=== PATIENT | female | born 1985 | race Asian ===

== ENCOUNTER 2019-09-26 09:22 | Emergency (ER) | payer MEDICAID ==
[~2019-09-26] VITALS: Ht 157.5 cm; Wt 72.7 kg
[2019-09-26 09:45] VITALS: BP 120/71
[2019-09-26] MEDS ORDERED: DEXAMETHASONE SOD PHOS 20 MG/5 ML VIAL. PO ONE (10:30)
[2019-09-26] MEDS ORDERED: diphenhydrAMINE HCL 25 MG CAPSULE PO ONE (10:30)
--- NOTE | 2019-09-26 10:45 | PHYS DOC ---
Past Medical History Past Medical History: No Pertinent History Past Surgical History: No Surgical History Smoking Status: Never Smoker Alcohol Use: None General Adult EDM: Chief Complaint: SKIN RASH/ABSCESS HPI: HPI: Patient is a 33 year old female, accompanied by a friend, who presents to the emergency department with complaints of a itchy rash all over that began yesterday. The patient is non-Belizean speaking and her friend is translating for her. The patient denies any new medications, detergents, foods, perfumes, or environmental exposures. She denies any shortness of breath, wheezing, fever, sore throat, cough, abdominal pain, nausea, vomiting, or diarrhea. She reports her last menstrual cycle was on September 192011, she denies any medical or surgical history. She currently denies any pain. Review of Systems: Review of Systems: Constitutional: Denies fever or chills. [] HENT: Denies nasal congestion or sore throat. [] Respiratory: Denies cough or shortness of breath. [] Cardiovascular: Denies chest pain GI: Denies abdominal pain, nausea, vomiting, or diarrhea. [] Integument: See HPI Neurologic: Denies headache Psychiatric: Denies depression or anxiety. [] Heart Score: Risk Factors: Risk Factors: DM, Current or recent (<one month) smoker, HTN, HLP, family history of CAD, obesity. Risk Scores: Score 0 - 3: 2.5% MACE over next 6 weeks - Discharge Home Score 4 - 6: 20.3% MACE over next 6 weeks - Admit for Clinical Observation Score 7 - 10: 72.7% MACE over next 6 weeks - Early Invasive Strategies Current Medications: Current Medications Medications (Trade) Dose Ordered Sig/Harriett Start Time Stop Time Status Last Admin Dose Admin Dexamethasone Sodium Phosphate (Decadron) 10 mg 1X ONCE 09/26/19 10:30 09/26/19 10:33 DC Diphenhydramine HCl (Benadryl) 50 mg 1X ONCE 09/26/19 10:30 09/26/19 10:33 DC Allergies: Allergies: Allergies Coded Allergies Type Severity Reaction Last Updated Verified No Known Drug Allergies 09/26/19 No Physical Exam: PE: Constitutional: Well developed, well nourished, no acute distress, non-toxic appearance. [] HENT: Normocephalic, atraumatic, bilateral external ears normal, nose normal. [] Eyes: PERRLA, EOMI, conjunctiva normal, no discharge. [] Neck: Normal range of motion, no stridor. [] Cardiovascular:Heart rate regular rhythm Lungs & Thorax: Respirations even and unlabored, no retractions, no respiratory distress, no wheezing Skin: Warm, dry; erythemic, raised, welts over trunk, abdomen, and extremities consistent with urticaria Extremities: No cyanosis, ROM intact, no edema. [] Neurologic: Alert and oriented X 3, no focal deficits noted. [] Psychologic: Affect normal, judgement normal, mood normal. [] Current Patient Data: Vital Signs: Vital Signs Date Time Temp Pulse Resp B/P (MAP) Pulse Ox O2 Delivery O2 Flow Rate FiO2 09/26/19 09:45 97.7 107 15 120/71 (87) 97 Room Air 97.7 EKG: EKG: [] Radiology/Procedures: Radiology/Procedures: [] Course & Med Decision Making: Course & Med Decision Making Pertinent Labs and Imaging studies reviewed. (See chart for details) [] Dragon Disclaimer: Dragon Disclaimer: This electronic medical record was generated, in whole or in part, using a voice recognition dictation system. Departure Departure Impression: Primary Impression: Urticaria of unknown origin Disposition: HOME, SELF-CARE Condition: STABLE Referrals: NO PCP (PCP) Patient Instructions: Allenes, [id number] Additional Instructions: Take 25 mg of [id number]-cvgbfbs Benadryl every 6 hours as needed for itching. Also recommend that you take an dzld-zpu-[id number] antihistamine daily such as Zyrtec, Maribel, or Claritin. Be sure to wash all of your bedding and clothing. Follow-up with your primary care doctor if symptoms persist, return to the ER symptoms worsen or you develop shortness of breath. Justicifation of Admission Dx: Justifications for Admission: Justification of Admission Dx: N/A LUCINDA JI APRN Sep 26, 2019 10:45
== END 2019-09-26 11:50 | disposition home or self-care (01) ==
LOC: ER 09:22
DX: L50.9 Urticaria, unspecified (principal); R21 Rash and other nonspecific skin eruption; L29.9 Pruritus, unspecified
CPT/HCPCS: 99283; J1100; Q0163

== ENCOUNTER 2019-09-27 12:17 | Emergency (ER) | payer MEDICAID ==
[~2019-09-27] VITALS: Ht 157.5 cm; Wt 72.7 kg
[2019-09-27] MEDS ORDERED: LIDO:MAALOX 1:1 20 ML SINGLE DOSE. SWSW ONE (13:15)
--- NOTE | 2019-09-27 13:17 | PHYS DOC ---
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 She denies any nausea, vomiting, diarrhea, abdominal pain, shortness of breath, palpitations, cough, or sore throat. Patient states that she continues to have the rash on her abdomen but it is better than it was yesterday. She denies any known exposure to anyone who was tested positive for COVID-19. She continues to deny any new environmental exposures, foods, medications, or detergents. She rates the pain a 10 out of 10 on the pain scale, it is located over her epigastric area and described as burning, she denies any alleviating factors, the pain is exacerbated by taking Keanu. Review of Systems: Review of Systems: Constitutional: Denies fever or chills. [] Eyes: Denies change in visual acuity. [] HENT: Denies nasal congestion or sore throat. [] Respiratory: Denies cough or shortness of breath. [] Cardiovascular: Denies palpiatations or edema; reports burning and tightness in chest GI: Denies nausea, vomiting, or diarrhea; reports epigastric pain : Denies dysuria. [] Musculoskeletal: Denies back pain or joint pain. [] Integument: see HPI Neurologic: Denies headache, focal weakness or sensory changes. [] Endocrine: Denies polyuria or polydipsia. [] Lymphatic: Denies swollen glands. [] Psychiatric: Denies depression or anxiety. [] Heart Score: Risk Factors: Risk Factors: DM, Current or recent (<one month) smoker, HTN, HLP, family history of CAD, obesity. Risk Scores: Score 0 - 3: 2.5% MACE over next 6 weeks - Discharge Home Score 4 - 6: 20.3% MACE over next 6 weeks - Admit for Clinical Observation Score 7 - 10: 72.7% MACE over next 6 weeks - Early Invasive Strategies Current Medications: Current Medications Medications (Trade) Dose Ordered Sig/Harriett Start Time Stop Time Status Last Admin Dose Admin Multi-Ingredient Mouthwash/Gargle (Gi Cocktail) 20 ml 1X ONCE 09/27/19 13:15 09/27/19 13:16 Allergies: Allergies: Allergies Coded Allergies Type Severity Reaction Last Updated Verified No Known Drug Allergies 09/26/19 No Physical Exam: PE: Constitutional: Well developed, well nourished, no acute distress, non-toxic appearance, obese [] HENT: Normocephalic, atraumatic, bilateral external ears normal, oropharynx moist, no oral exudates, nose normal. [] Eyes: PERRLA, EOMI, conjunctiva normal, no discharge. [] Neck: Normal range of motion, no stridor. [] Cardiovascular:Heart rate regular rhythm Lungs & Thorax: Respirations even and unlabored, no retractions, no respiratory distress Abdomen: soft, epigastric tenderness, no rebound tenderness, no guarding[] Skin: Warm, dry, no erythema, no rash. [] Back: No tenderness Extremities: No cyanosis, ROM intact, no edema. [] Neurologic: Alert and oriented X 3, no focal deficits noted. [] Psychologic: Affect normal, judgement normal, mood normal. [] Current Patient Data: Vital Signs: Vital Signs Date Time Temp Pulse Resp B/P (MAP) Pulse Ox O2 Delivery O2 Flow Rate FiO2 09/27/19 12:20 98.1 83 16 131/83 (99) 100 Room Air 98.1 EKG: EK-sinus rhythm rate 81, no STEMI, read by Dr. Trent [] Radiology/Procedures: Radiology/Procedures: PROCEDURE: CT ANGIOGRAPHY CHEST Exam: CT of chest with contrast INDICATION: Elevated d-dimer TECHNIQUE: Sequential axial images through the chest obtained following the administration 100 mL of Omni 350 IV contrast. Sagittal and coronal reformatted images were reconstructed from the axial data and reviewed. 3-D reformatted images were reconstructed from the axial data and reviewed. Comparisons: None FINDINGS: Visualized portions of the thyroid are unremarkable. No enlarged mediastinal lymph nodes are identified. Heart size is normal. No pericardial effusion. Thoracic aorta has a normal course and caliber. Pulmonary artery is not enlarged. No pulmonary embolus identified within the main, lobar or segmental pulmonary arteries. Airways are patent. No consolidation or pneumothorax. No suspicious lung nodules are identified. No Pleural effusion or thickening. Visualized upper abdomen is unremarkable. No suspicious osseous lesions or acute fractures. IMPRESSION: No pulmonary embolus identified within the main, lobar or segmental pulmonary arteries. Exposure: One or more of the following in the visualized dose reduction techniques were utilized for this examination: 1. Automated exposure control 2. Adjustment of the MA and/or KV according to patient size 3. Use of iterative of reconstructive technique[] Course & Med Decision Making: Course & Med Decision Making Pertinent Labs and Imaging studies reviewed. (See chart for details) 33-year-old female presents to the emergency department with concerns of epiga stric discomfort and chest tightness after taking Keanu for hives that developed yesterday. Hive rash concerning for COVID, ER work-up included labs and imaging. CBC revealed a white blood cell count of 19.8 (likely due to the Decadron that patient was given yesterday), hemoglobin of 10.6, hematocrit of 33.4, no bandemia; patient's d-dimer was elevated at 9.46; CMP revealed a potassium of 3.4, glucose of 169, and calcium of 8 otherwise unremarkable; patient's lactic acid was 2.7, her C-reactive protein was 21.2 lipase was within normal limits. CT angios chest was negative for any PE or acute findings. COVID-19 test is pending. Patient was given a liter of normal saline in the emergency department and a GI cocktail for relief of epigastric pain. She was told to go home and quarantine as she likely has COVID-19. Continue taking Benadryl as needed for rash and itching, discontinue use of Keanu. Follow the quarantine instructions as directed return to the emergency room if symptoms worsen. The patient and her motor vehicle parts interpreter verbalized an understanding of home care, medications, follow-up, and return to ED instructions and was in agreement with the plan of care. Dragon Disclaimer: Dragon Disclaimer: This electronic medical record was generated, in whole or in part, using a voice recognition dictation system. Departure Departure Impression: Primary Impression: Person under investigation for COVID-19 Additional Impression: Epigastric abdominal pain Disposition: HOME, SELF-CARE Condition: STABLE Referrals: NO PCP (PCP) Patient Instructions: Abdominal Pain (Nonspecific) Additional Instructions: STOP TAKING THE KEANU FOR YOUR RASH, CONTINUE TAKING 25 MG OF BENADRYL EVERY 6 HOURS NEEDED TO REDUCE RASH. You have been tested for or diagnosed with COVID-19. It is an infection caused by a new type of coronavirus. COVID-19 will cause cold-like or mild flu symptoms in most. It can cause more severe symptoms like problems breathing in some. There is no treatment for COVID-19. The body will clear the infection over time. Self-care will help to ease discomfort. Steps to Take: Self-Care Rest as needed. Healthy habits may help you feel better. Steps include: Choose healthy foods including fruits and vegetables. Drink water throughout the day. Get plenty of sleep each night. If you smoke, try to quit. It may ease breathing. Avoid alcohol. Keep Others Healthy The virus can spread to others. Droplets are released every time you sneeze or cough. The droplets can get into the mouth, nose, or eyes of people near you and lead to infection. To lower the chances of spreading COVID-19 to others: Stay at home until your doctor has said it is safe to leave. If you tested positive this will mean staying isolated until both of the following are true: At least 7 days have passed since the start of illness. You are free of fever for at least 72 hours without the use of medicine. During this time: - Avoid public areas, events, or transportation. Do not return to work or school until your doctor has said it is safe to do so. - Call ahead if you need to go to a medical center. Let them know you may have COVID-19. It will help them guide you where to go. They may also ask you to wear a facemask when you come to the office. - If you call for emergency medical services, let them know you may have COVID- 19. While at home: - Try to avoid close contact with others. Stay about 6 feet away. - If possible, spend most of your time in a separate room from others. - Use a face mask if you will be in close contact with others such as sharing a room or vehicle. - Have someone wipe down common surfaces in the home. Use household trade recruiter every day on areas like doorknobs, counters, or sinks. - Cough or sneeze into a tissue. Throw the tissue away right after use. If a tissue is not available, cough or sneeze into your elbow. - Wash your hands often. Wash them after sneezing or coughing. Use soap and water and wash for at least 20 seconds. Alcohol based hand die cleaner can be used if soap and water is not available. - Do not prepare food for others. Avoid sharing personal items like forks, spoons, or toothbrushes. - Avoid close contact with pets while you are sick. There is no evidence of the virus passing to pets. This is a safety step until more is known about this virus. Isolation can be frustrating. Social interaction can help. Keep in touch with friends and family through phone and tech options. You can still interact with others in your home, just keep a safe distance of about 6 feet. Follow-up: Your doctors office will check in with you to see if there are any changes in your health. You may be asked to keep track of symptoms to share with them. They will also let you know when you are clear to be in public again. Problems to Look Out For: Contact your doctor if your recovery is not going as you expect. Get emergency care if you have problems such as: - Trouble breathing - Nonstop chest pain or pressure - Changes in awareness, confusion, or problems waking - Lips or face have bluish color - Worsening of symptoms If you think you have an emergency, call for emergency medical services right away. As taken from [facility] Justicifation of Admission Dx: Justifications for Admission: Justification of Admission Dx: N/A LUCINDA JI APRN Sep 27, 2019 13:17
[2019-09-27 13:43] LABS: BASO % 0 % (0-3); EOS % 0 % (0-3); HEMATOCRIT 33.4 % (36.0-47.0); HEMOGLOBIN 10.6 g/dL (12.0-15.5); LYMPH # 1.1 x10^3/uL (1.0-4.8); LYMPH % 5 % (24-48); MEAN CORPUSCULAR HEMOGLOBIN 23 pg (25-35); MEAN CORPUSCULAR HGB CONC 32 g/dL (31-37); MEAN CORPUSCULAR VOLUME 73 fL (79-100); MONO # 0.8 x10^3/uL (0.0-1.1); MONO % 4 % (0-9); NEUT # 17.8 x10^3/uL (1.8-7.7); NEUT % 90 % (31-73); PLATELET COUNT 303 x10^3/uL (140-400); RED BLOOD COUNT 4.54 x10^6/uL (3.50-5.40); WHITE BLOOD COUNT 19.8 x10^3/uL (4.0-11.0)
[2019-09-27 13:52] LABS: GFR 64.3; POTASSIUM 3.4 mmol/L (3.5-5.1)
[2019-09-27 14:09] LABS: ALBUMIN 3.5 g/dL (3.4-5.0); C-REACTIVE PROTEIN 21.2 mg/L (0-3.3); TOTAL BILIRUBIN 0.1 mg/dL (0.2-1.0)
[2019-09-27 14:21] LABS: % BANDS 2 % (0-9); % LYMPHS 6 % (24-48); % MONOS 6 % (0-10); % SEGS 86 % (35-66)
[2019-09-27 14:23] LABS: PLT ESTIMATE ADEQUATE (ADEQUATE); TOXIC GRANULATION SLIGHT
[2019-09-27] MEDS ORDERED: IOHEXOL 350 MG/ML 100 ML VIAL. IV ONE (14:30)
[2019-09-27 14:42] LABS: PREG TEST PT QUAL NEGATIVE (NEG)
[2019-09-27] MEDS ORDERED: IV NORMAL SALINE 1000ML BAG 1,000 ML IV ONE (15:15)
[2019-09-27 15:51] VITALS: BP 120/64
[2019-09-27 16:10] LABS: BILIRUBIN,URINE NEGATIVE (NEG); CLARITY,URINE CLEAR; NITRITE,URINE NEGATIVE (NEG); PROTEIN,URINE NEGATIVE (NEG-TRACE); UROBILINOGEN,URINE 0.2 mg/dL (0.2 mg/dL)
[2019-09-27 16:21] LABS: BACTERIA,URINE FEW /HPF (0-FEW); COLOR,URINE STRAW; SQUAMOUS EPITHELIAL CELL,UR MOD /LPF
[2019-09-27 16:22] LABS: RBC,URINE RARE /HPF (0-2); WBC,URINE OCC /HPF (0-4)
--- NOTE | 2019-09-27 16:29 | RAD ---
Exam: CT of chest with contrast INDICATION: Elevated d-dimer TECHNIQUE: Sequential axial images through the chest obtained following the administration 100 mL of Omni 350 IV contrast. Sagittal and coronal reformatted images were reconstructed from the axial data and reviewed. 3-D reformatted images were reconstructed from the axial data and reviewed. Comparisons: None FINDINGS: Visualized portions of the thyroid are unremarkable. No enlarged mediastinal lymph nodes are identified. Heart size is normal. No pericardial effusion. Thoracic aorta has a normal course and caliber. Pulmonary artery is not enlarged. No pulmonary embolus identified within the main, lobar or segmental pulmonary arteries. Airways are patent. No consolidation or pneumothorax. No suspicious lung nodules are identified. No Pleural effusion or thickening. Visualized upper abdomen is unremarkable. No suspicious osseous lesions or acute fractures. IMPRESSION: No pulmonary embolus identified within the main, lobar or segmental pulmonary arteries. Exposure: One or more of the following in the visualized dose reduction techniques were utilized for this examination: 1. Automated exposure control 2. Adjustment of the MA and/or KV according to patient size 3. Use of iterative of reconstructive technique Electronically signed by: Amalia Diaz MD (09/27/2019 4:26 PM) [id number]
--- NOTE | 2019-09-27 16:51 | RAD ---
INDICATION: Reason: n/v/d, PUI.PREG TEST / Spl. Instructions: / History: COMPARISON: Earlier same day FINDINGS: Single view of chest obtained. Cardiac silhouette is mildly prominent in size. No focal airspace consolidation or pulmonary edema. IMPRESSION: * No focal airspace consolidation or edema. Electronically signed by: Jose Luis Rivera MD (09/27/2019 4:48 PM) [id number]
--- NOTE | 2019-09-28 06:20 | EKG ---
[facility] [address] [place] [address] Test Date: 2019-09-27 Test Time: 12:40:27 Pat Name: NIYA HOFFMAN Department: Room: Gender: F Hospitality Aide: : 1985 Requested By: LUCINDA JI Order Number: [id number] Reading MD: Measurements Intervals [place] Rate: 81 P: -26 PA: 150 QRS: 5 QRSD: 74 T: -8 QT: 388 QTc: 451 Interpretive Statements SINUS RHYTHM NORMAL ECG RI6.01 No previous ECG available for comparison
== END 2019-09-27 17:45 | disposition home or self-care (01) ==
LOC: ER 12:17
DX: R10.13 Epigastric pain (principal); Z20.818 Contact with and (suspected) exposure to other bacterial communicable diseases; R07.89 Other chest pain
CPT/HCPCS: 36415; 71045; 71275; 80053; 81001; 82550; 82728; 83605; 83690; 83735; 84703; 85007; 85025; 85379; 86140; 93005; 99285; J7030; Q9967; U0003